=== PATIENT | female | born 1980 | race Two or more races ===

== ENCOUNTER 2019-03-11 11:19 | Emergency (ER) | payer BC, OTHER ==
[~2019-03-11] VITALS: Ht 165.1 cm; Wt 54.4 kg
[2019-03-11 12:20] VITALS: BP 114/80
[2019-03-11] MEDS ORDERED: KETOROLAC TROMETH 15 mg/ml 1ML VL IV ONE (13:00)
[2019-03-11] MEDS ORDERED: diphenhdrAMINE HCL 50 MG/1 ML VL IV ONE (13:00)
== END 2019-03-11 13:39 | disposition home or self-care (01) ==
LOC: ER 11:19 → EDBD 11:19 → ER 13:39
DX: M43.6 Torticollis (principal)
CPT/HCPCS: 96374; 96375; 99283; J1200; J1885